=== PATIENT | female | born 1960 | race Caucasian/White ===

== ENCOUNTER 2019-06-15 09:07 | Outpatient (CLI) | payer OTHER, SELFPAY ==
--- NOTE | ~2019-06-15 | MM_ITS ---
EXAMINATION: MM screening gianni BI w shon HISTORY: Screening mammogram, family history of breast cancer in her mother and sister. TECHNIQUE: Craniocaudal and mediolateral oblique 3-D tomosynthesis images were obtained and synthetic 2-D images were generated. CAD analysis was submitted and interpreted. COMPARISON: 12/18/2017, 10/03/2016, 07/18/2015, 05/31/2014, 04/16/2013 BREAST PARENCHYMAL COMPOSITION: There are scattered areas of fibroglandular density. FINDINGS: There are changes of reduction mammoplasty. There is no evidence of suspicious mass, calcif ication, or architectural distortion to suggest malignancy in either breast. There has been no suspic ious interval change. IMPRESSION: 1. No mammographic evidence of malignancy. 2. Recommend routine screening mammography in one year. BI-RADS Category 2: Benign finding(s). Reviewed, dictated and finalized at location A. PACKER AND SEALER
== END 2019-06-15 09:08 | disposition home or self-care (01) ==
LOC: ANHIMG 09:13
PROVIDERS: PCP Family Medicine; Visit Provider Family Medicine
DX: Z12.31 Encounter for screening mammogram for malignant neoplasm of breast (principal)
CPT/HCPCS: 77063; 77067

== ENCOUNTER 2020-09-18 09:16 | Outpatient (CLI) | payer OTHER, SELFPAY ==
--- NOTE | ~2020-09-18 | MM_ITS ---
EXAMINATION: MM screening gianni BI w shon HISTORY: Screening mammogram TECHNIQUE: Craniocaudal and mediolateral oblique 3-D tomosynthesis images were obtained and synthetic 2-D images were generated. CAD analysis was submitted and interpreted. COMPARISON: , 12/18/2017, 10/03/2016 bilateral digital screening mammogram examinations BREAST PARENCHYMAL COMPOSITION: There are scattered areas of fibroglandular density. FINDINGS: History of bilateral breast reduction surgery. Stable minimal fibroglandular asymmetry. Occ asional bilateral benign calcifications. There is no evidence of suspicious mass, calcification, or a rchitectural distortion to suggest malignancy in either breast. There has been no suspicious interval change. IMPRESSION: 1. No mammographic evidence of malignancy. 2. Recommend routine screening mammography in one year. BI-RADS Category 2: Benign finding(s). Reviewed, dictated and finalized at location A.
== END 2020-09-18 09:17 | disposition home or self-care (01) ==
LOC: ANHIMG 09:17
PROVIDERS: PCP Family Medicine; Visit Provider Family Medicine
DX: Z12.31 Encounter for screening mammogram for malignant neoplasm of breast (principal)
CPT/HCPCS: 77063; 77067

== ENCOUNTER 2021-05-07 02:25 | Day surgery (SDC) | payer OTHER, SELFPAY ==
[2021-04-18 14:53] VITALS: BMI 37.3
--- NOTE | 2021-05-04 12:50 | PM.HPGS ---
History of Present Illness History of Present Illness Consent: Risks, benefits, and alternatives have been discussed and questions answered. Patient agrees to proceed with procedure. Chief complaint: neoplasm screening Narrative: Tosha Mcallister is a 60 year old female Referred for colon cancer screening. Her last colonoscopy was nearly 10 years ago. Review of Systems Review of Systems: All systems reviewed & are unremarkable except as noted in HPI and below PMFSH Past Medical History Medical History Female gynecomastia Hyperlipidemia RLS (restless legs syndrome) Surgical History Surgical History H/O reduction mammoplasty History of arthroplasty of left knee Family History Family History Father Hypertension Family history of elevated blood lipids Malignant neoplasm of prostate Mother Family history of malignant neoplasm of breast in first degree relative Grandparent Diabetes mellitus Social History Social History Social History: Smoking packs per day: 1 Smoking cigarettes per day: 20.0 Years smoked: 3 Smoking pack-years: 3.00 Smoking status: Former smoker Tobacco type: cigarettes Second hand tobacco smoke exposure: No Smoking end date: 04/26/86 Alcohol intake: current Alcohol use details: occasional, rare Substance use: current Substance use type: other Other substance usage details: CBD Gummies for sleep Last use: Pt also has THC Gummies to help her sleep Living arrangements: with family Additional living arrangements comments: Pt lives with her 2 children Gender identity (if verbalized by the patient): Female Sexual Orientation (if Verbalized by the Patient): Straight or Heterosexual Spiritual care concerns: No Meds Home Medications and Allergies Home Medications Medication Instructions Recorded Confirmed Type ascorbic acid (vitamin C) 1,000 mg 1 gm PO DAILY 04/08/19 04/18/21 History tablet cholecalciferol (vitamin D3) 250 250 mcg PO DAILY 05/23/20 04/18/21 History mcg (10,000 unit) capsule ropinirole 1 mg tablet 1 mg PO .qhs #90 tablet 08/22/20 04/18/21 Rx meloxicam 15 mg tablet 15 mg PO DAILY #30 tablet 02/19/21 04/18/21 Rx rosuvastatin 10 mg tablet 10 mg PO DAILY #90 tablet 03/28/21 04/18/21 Rx Allergies Allergy/AdvReac Type Severity Reaction Status Date / Time morphine Allergy Mild vomit Verified 05/07/21 07:42 codeine Allergy Unknown Nausea Verified 05/07/21 07:42 Exam Resp: Auscultation: clear to auscultation bilaterally Cardio: Rate: regular rate Rhythm: regular rhythm GI: GI Palp: Yes Soft to palpation and No Tenderness to palpation present (GI) Assessment and Plan Assessment and plan (1) Colon cancer screening: Code(s): Z12.11 - Encounter for screening for malignant neoplasm of colon Status: Acute Assessment and Plan: Colonoscopy with possible biopsy or polypectomy or cautery or injection of substances.
[2021-05-07 07:43] VITALS: BP 145/70; PULSE 83; RESP 20; TEMP 36.4; O2SAT 98
--- NOTE | 2021-05-07 07:50 | WPDANESEPPF ---
Anes - Initial Pre Proc Eval Procedure: Operation Date: 05/07/21 08:30 Proposed Procedures p Screening Colonoscopy - Ariel Levine MD Date/Time: 05/07/21 07:50 Surgeon: Ariel Levine MD Pre Op Diagnosis: neoplasm screening Patient Data Age: 60 Gender: F Height: 1.73 m Weight: 115.2 kg Last Vital Signs Temp 36.4 C 05/07/21 07:43 Pulse 83 05/07/21 07:43 Resp 20 05/07/21 07:43 BP 145/70 H 05/07/21 07:43 Pulse Ox 98 05/07/21 07:43 Allergies Allergy/AdvReac Type Severity Reaction Status Date / Time morphine Allergy Mild vomit Verified 05/07/21 07:42 codeine Allergy Unknown Nausea Verified 05/07/21 07:42 Home Medications Medication Instructions Recorded Confirmed Type ascorbic acid (vitamin C) 1,000 mg 1 gm PO DAILY 04/08/19 04/18/21 History tablet cholecalciferol (vitamin D3) 250 250 mcg PO DAILY 05/23/20 04/18/21 History mcg (10,000 unit) capsule ropinirole 1 mg tablet 1 mg PO .qhs #90 tablet 08/22/20 04/18/21 Rx meloxicam 15 mg tablet 15 mg PO DAILY #30 tablet 02/19/21 04/18/21 Rx rosuvastatin 10 mg tablet 10 mg PO DAILY #90 tablet 03/28/21 04/18/21 Rx Patient hx anesthesia problems: none Family hx anesthesia problems: none Results Review: All pre-operative results and documents have been reviewed as part of the pre-operative evaluation. [facility] Past Medical History Medical History Female gynecomastia Hyperlipidemia RLS (restless legs syndrome) Surgical History Surgical History H/O reduction mammoplasty History of arthroplasty of left knee Family History Family History Father Hypertension Family history of elevated blood lipids Malignant neoplasm of prostate Mother Family history of malignant neoplasm of breast in first degree relative Grandparent Diabetes mellitus Social History Social History (Updated 02/19/21 @ 11:12 by Vannesa Garcia Social History: Smoking packs per day: 1 Smoking cigarettes per day: 20.0 Years smoked: 3 Smoking pack-years: 3.00 Smoking status: Former smoker Tobacco type: cigarettes Second hand tobacco smoke exposure: No Smoking end date: 04/26/86 Alcohol intake: current Alcohol use details: occasional, rare Substance use: current Substance use type: other Other substance usage details: CBD Gummies for sleep Last use: Pt also has THC Gummies to help her sleep Living arrangements: with family Additional living arrangements comments: Pt lives with her 2 children Gender identity (if verbalized by the patient): Female Sexual Orientation (if Verbalized by the Patient): Straight or Heterosexual Spiritual care concerns: No Anes - Eval Final PreProcedure Day of Procedure 05/07/21 07:50 Patient weight: obese Heart: regular rate and rhythm Lungs: clear to auscultation and normal air movement Airway: Mallampati scale class II Neurological: alert and oriented Last oral intake: >/= 8 hours ASA classification: III Emergent: no Anesthetic plan: proceed Anesthesia type and monitoring: general GIVS and standard monitoring Results Review: All pre-operative results and documents have been reviewed as part of the pre-operative evaluation. Informed Consent: The patient's anesthetic plan and its attendant risks and benefits were discussed with the patient/family/POA. Questions were solicited and answers provided to the satisfaction of the patient/family/POA.
[2021-05-07] MEDS: LACTATED RINGERS 1,000 ML 150 ML IV CONT (07:52)
[2021-05-07 08:38] VITALS: BP 102/62; PULSE 74; RESP 20; O2SAT 95
[2021-05-07 08:48] VITALS: BP 108/61; PULSE 76; RESP 18; O2SAT 100
[2021-05-07 08:58] VITALS: BP 123/82; PULSE 74; RESP 18; O2SAT 100
== END 2021-05-07 09:14 | disposition home or self-care (01) ==
PROVIDERS: PCP Family Medicine; Visit Provider Internal Medicine Gastroenterology
PROC: 0DJD8ZZ Inspection of Lower Intestinal Tract, Via Natural or Artificial Opening Endoscopic (ICD-10-PCS; CPT 45378; principal; 2021-05-07 08:30)
DX: Z12.11 Encounter for screening for malignant neoplasm of colon (principal); K63.5 Polyp of colon; E78.5 Hyperlipidemia, unspecified; G25.81 Restless legs syndrome; Z87.891 Personal history of nicotine dependence; F12.90 Cannabis use, unspecified, uncomplicated
CPT/HCPCS: 45385; 88305; J2704; J7120

== ENCOUNTER 2022-05-17 09:32 | Outpatient (CLI) | payer OTHER, SELFPAY ==
--- NOTE | ~2022-05-17 | MM_ITS ---
EXAMINATION: MM screening gianni BI w shon HISTORY: Screening mammogram, family history of breast cancer in her sister. TECHNIQUE: Craniocaudal and mediolateral oblique 3-D tomosynthesis images were obtained and synthetic 2-D images were generated. CAD analysis was submitted and interpreted. COMPARISON: 09/18/2020, 06/15/2019, 12/18/2017 BREAST PARENCHYMAL COMPOSITION: There are scattered areas of fibroglandular density. FINDINGS: RIGHT BREAST: There is a 9 mm mass in the posterior third of the lower, slightly inner breast. LEFT BREAST: No suspicious mass, calcification, or architectural distortion are identified to suggest malignancy. There has been no suspicious interval change. IMPRESSION: 1. Right breast mass. 2. Additional mammographic views and possible breast ultrasound are recommended. BI-RADS Category 0: Incomplete: Needs additional imaging evaluation. Reviewed, dictated and finalized at location A. NCIAL SERVICES AUDITOR IMPRESSION: 1. Right breast mass. 2. Additional mammographic views and possible breast ultrasound are recommended . BI-RADS Category 0: Incomplete: Needs additional imaging evaluation.
== END 2022-05-17 09:33 | disposition home or self-care (01) ==
LOC: ANHIMG 09:34
PROVIDERS: PCP Family Medicine; Visit Provider Family Medicine
DX: Z12.31 Encounter for screening mammogram for malignant neoplasm of breast (principal); R92.8 Other abnormal and inconclusive findings on diagnostic imaging of breast
CPT/HCPCS: 77063; 77067

== ENCOUNTER 2022-06-05 12:46 | Outpatient (CLI) | payer OTHER, SELFPAY ==
--- NOTE | ~2022-06-05 | MMUS_ITS ---
EXAMINATION: MM diagnostic gianni RT w shon, US breast RT limited HISTORY: 11 year-old mass reported in posterior third is lower slightly inner right breast on 3 screening mammogram examination TECHNIQUE: Additional 3-D tomosynthesis images of right breast were performed and synthetic 2-D image s were generated. CAD analysis was submitted and interpreted. High resolution targeted right breast u ltrasound was performed. COMPARISON: Serial bilateral screening mammograms dating back to 12/18/2017 FINDINGS: MAMMOGRAPHIC FINDINGS: There is an approximately 6 mm mass in the posterior mid to lower inner right breast. ULTRASOUND: 4:00 4 cm from nipple: 3.7 x 8 x 6.6 mm parallel circumscribed sonolucency with through transmission and no internal vascularity, consistent with a simple cyst. No suspicious mass or shadowing is detected. IMPRESSION: 1. 8 mm simple cyst 2. Routine mammographic screening is recommended. BIRADS Category 2: Benign Reviewed, dictated and finalized at location A. 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 8 mm simple cyst 2. Routine mammographic screening is recommended. BIRADS Category 2: Benign
== END 2022-06-05 12:47 | disposition home or self-care (01) ==
LOC: ANHIMG 12:48
PROVIDERS: PCP Family Medicine; Visit Provider Nurse Practitioner Gerontology
DX: R92.8 Other abnormal and inconclusive findings on diagnostic imaging of breast (principal); N60.01 Solitary cyst of right breast
CPT/HCPCS: 76642; 77061; 77065; G0279

== ENCOUNTER 2023-06-28 18:22 | Emergency (ER) | payer OTHER, SELFPAY ==
--- NOTE | 2023-06-28 18:24 | ED.SKABFB ---
HPI - Skin/Abscess/Foreign Bdy General Chief complaint: Skin/Abscess/Foreign Body Stated complaint: rash Time Seen by Provider: 06/28/23 18:24 Source: patient Mode of arrival: ambulatory Limitations: no limitations History of Present Illness HPI narrative: Tosha is a 62-year-old female patient presenting to the clinic today with complaints of a rash to her left posterior axilla. She really states that she developed this rash after being in close contact with a friend who had shingles. She reports that the rash is itchy, raised, but not yet painful. First noticed a rash today. Related Data Home Medications Medication Instructions Recorded Confirmed cholecalciferol (vitamin D3) 250 250 mcg PO DAILY 05/23/20 06/02/23 mcg (10,000 unit) capsule omega-3 28.5 mg-dha 23.75 mg-epa tablet PO 06/02/23 06/02/23 4.75 mg-fish oil 113.5 mg chew tablet fexofenadine 60 mg tablet 60 mg PO Q12H 06/28/23 06/28/23 lutein 10 mg tablet 10 mg PO DAILY 06/28/23 06/28/23 vitamin A 2,400 mcg capsule 2,400 mcg PO DAILY 06/28/23 06/28/23 vitamin B complex 1 cap PO DAILY 06/28/23 06/28/23 Allergies Allergy/AdvReac Type Severity Reaction Status Date / Time morphine AdvReac Mild vomit Verified 06/28/23 18:35 codeine AdvReac Unknown Nausea Verified 06/28/23 18:35 Review of Systems Review of Systems: Pertinent positives per HPI. Patient denies any fever, chills, headache, visual changes, dizziness, cough, shortness of breath, chest pain, palpitations, nausea, vomiting, diarrhea, constipation, abdominal pain, or any urinary issues. [facility] Past Medical History Medical History Abnormal mammogram Breast cancer screening Breast screening Colon cancer screening Encounter for general adult medical examination without abnormal findings Female gynecomastia Hyperlipidemia RLS (restless legs syndrome) Smoker Weight gain Surgical History Surgical History H/O reduction mammoplasty History of arthroplasty of left knee Family History Family History Father Hypertension Family history of elevated blood lipids Malignant neoplasm of prostate Mother Family history of malignant neoplasm of breast in first degree relative Grandparent Diabetes mellitus Social History Social History Social History: Smoking packs per day: 1 Smoking cigarettes per day: 20.0 Years smoked: 3 Smoking pack-years: 3.00 Smoking status: Former smoker Tobacco type: cigarettes Second hand tobacco smoke exposure: No Smoking end date: 04/26/86 Alcohol intake: current Alcohol use details: occasional, rare Substance use: current Substance use type: other Other substance usage details: CBD Gummies for sleep Last use: Pt also has THC Gummies to help her sleep Living arrangements: with family Additional living arrangements comments: Pt lives with her 2 children Occupation/Education: occupation Gender identity (if verbalized by the patient): Female Sexual Orientation (if Verbalized by the Patient): Straight or Heterosexual Spiritual care concerns: No Comments At the time of my signature, I reviewed and agree with the nursing past medical, surgical, social, and family history. There is no relevant family history pertinent to the patient complaint. Exam Narrative: General: Well-developed, well nourished, in no apparent distress Head: Normocephalic, atraumatic. Cardio: Regular rate and rhythm, s1 and s2 normal, no murmur appreciated. Resp: Clear to auscultation bilaterally, no rhonchi, rales, wheezing or rubs. Integumentary: [place], warm, and dry, red raised rash with erythemic base with mild tenderness to palpation with fascicular lesions to the left posterior axilla/back Course Co
[2023-06-28 18:33] VITALS: BP 134/55; PULSE 97; RESP 18; TEMP 36.4; O2SAT 97
[2023-06-28 18:36] VITALS: BP 134/55; PULSE 97; RESP 18; TEMP 36.4; O2SAT 97
== END 2023-06-28 18:53 | disposition home or self-care (01) ==
PROVIDERS: Emergency Provider Nurse Practitioner Family; PCP Family Medicine
DX: B02.9 Zoster without complications (principal); Z87.891 Personal history of nicotine dependence; E78.5 Hyperlipidemia, unspecified; G25.81 Restless legs syndrome; Z96.652 Presence of left artificial knee joint
CPT/HCPCS: 99213; G0463

== ENCOUNTER 2023-08-25 12:21 | Emergency (ER) | payer OTHER, SELFPAY ==
--- NOTE | 2023-08-25 12:26 | ED.URI ---
HPI - URI/Sore Throat General Chief Complaint: Upper Respiratory Infection Stated Complaint: Cough Time Seen by Provider: 08/25/23 12:55 Source: patient and RN notes reviewed Mode of arrival: ambulatory Limitations: no limitations History of Present Illness HPI Narrative: 63-year-old female with cough during asthma presents with concern for exacerbation. Reports after camping over the weekend she has had persistent cough. She denies fever, body aches, chills, sweats. She reports she has been using her rescue inhaler. MD elicited complaint: cough Related Data Home Medications Medication Instructions Recorded Confirmed cholecalciferol (vitamin D3) 250 250 mcg PO DAILY 05/23/20 08/25/23 mcg (10,000 unit) capsule omega-3 28.5 mg-dha 23.75 mg-epa 1 tablet PO DAILY 06/02/23 08/25/23 4.75 mg-fish oil 113.5 mg chew tablet fexofenadine 60 mg tablet 60 mg PO Q12H 06/28/23 08/25/23 lutein 10 mg tablet 10 mg PO DAILY 06/28/23 08/25/23 vitamin A 2,400 mcg capsule 2,400 mcg PO DAILY 06/28/23 08/25/23 vitamin B complex 1 cap PO DAILY 06/28/23 08/25/23 ropinirole 0.5 mg tablet 1 mg PO HS 08/25/23 08/25/23 Allergies Allergy/AdvReac Type Severity Reaction Status Date / Time codeine AdvReac Intermediate Nausea and Verified 08/25/23 12:52 Vomiting morphine AdvReac Intermediate Nausea and Verified 08/25/23 12:52 Vomiting Review of Systems Review of Systems: CONSTITUTIONAL: Denies malaise, chills, sweats, or fever. EYES: Denies visual changes, redness, or discharge. ENT: Denies rhinorrhea, congestion, sinus pain, otalgia and sore throat. CARDIOVASCULAR: Denies chest pain, palpitations, or edema. RESPIRATORY: Reports cough, dyspnea. GASTROINTESTINAL: Denies abdominal pain, nausea, vomiting, diarrhea SKIN: Denies rash or itching. MUSCULOSKELETAL: Denies myalgia. NEUROLOGIC: Denies headache. All systems reviewed & are unremarkable except as noted in HPI and below PMFSH Past Medical History Medical History Abnormal mammogram Breast cancer screening Breast screening Colon cancer screening Encounter for general adult medical examination without abnormal findings Female gynecomastia Hyperlipidemia RLS (restless legs syndrome) Smoker Weight gain Surgical History Surgical History H/O reduction mammoplasty History of arthroplasty of left knee Family History Family History Father Hypertension Family history of elevated blood lipids Malignant neoplasm of prostate Mother Family history of malignant neoplasm of breast in first degree relative Grandparent Diabetes mellitus Social History Social History (Updated 07/01/23 @ 15:40 by Vannesa Pereira) Social History: Smoking packs per day: 1 Smoking cigarettes per day: 20.0 Years smoked: 3 Smoking pack-years: 3.00 Smoking status: Former smoker Tobacco type: cigarettes Second hand tobacco smoke exposure: No Smoking end date: 04/26/86 Alcohol intake: current Alcohol use details: occasional, rare Substance use: current Substance use type: other Other substance usage details: CBD Gummies for sleep Last use: Pt also has THC Gummies to help her sleep Do You Feel Safe in your Home?: Yes Lack of Transportation: No Lack of Food: Never True Current Housing: I Have Housing Concerned About Future Housing: No Difficulty Paying Gas/Electric Bills: No Difficulty Paying for Meds: No Currently Unemployed: No Education: Don't Know Difficulty w/ Childcare or Family Care: No Living arrangements: with family Additional living arrangements comments: Pt lives with her 2 children Occupation/Education: occupation Gender identity (if verbalized by the patient): Female Sexual Orientation (if Verbalized by the Patient): Straight or Heterosexual Spiritual car
[2023-08-25 12:40] VITALS: BP 141/113; PULSE 96; RESP 18; TEMP 36.4; O2SAT 98
== END 2023-08-25 13:07 | disposition home or self-care (01) ==
PROVIDERS: Emergency Provider Nurse Practitioner; PCP Family Medicine
DX: J45.909 Unspecified asthma, uncomplicated (principal); Z87.891 Personal history of nicotine dependence; E78.5 Hyperlipidemia, unspecified; G25.81 Restless legs syndrome
CPT/HCPCS: 99213; G0463

== ENCOUNTER 2023-08-31 15:29 | Emergency (ER) | payer OTHER, SELFPAY ==
--- NOTE | ~2023-08-31 | XR_ITS ---
EXAMINATION: XR chest 2V DATE: 08/31/2023 15:57 INDICATION: One week of cough TECHNIQUE: PA and lateral views of the chest were obtained. COMPARISON: None FINDINGS: Thin linear bands of discoid atelectasis projecting over the right hilum and at the left costophrenic angle. No other airspace opacities, pulmonary edema, pleural effusion or pneumothorax. The cardiomed iastinal silhouette is normal. Moderate thoracic spondylosis. IMPRESSION: 1. Scattered mild discoid atelectasis. No other acute cardiopulmonary disease. Reviewed, dictated and finalized at location A.
[2023-08-31 15:35] VITALS: BP 137/86; PULSE 90; RESP 16; TEMP 36.4; O2SAT 97
--- NOTE | 2023-08-31 15:46 | ED.URI ---
HPI - URI/Sore Throat General Chief Complaint: Upper Respiratory Infection Stated Complaint: Cough Time Seen by Provider: 08/31/23 15:46 Source: patient Mode of arrival: ambulatory Limitations: no limitations History of Present Illness HPI Narrative: 63-year-old female presents with complaint of cough, nasal congestion, sinus pressure for the past week. Was seen here 6 days ago and given prednisone. Patient reports that she has cough. Asthma. Use a Symbicort inhaler. Cannot use albuterol inhaler due to making heart race. Denies chest pain and shortness of breath. Patient concerned that she has bacterial sinusitis. Leaving for [place] tomorrow and wants antibiotic prior to going out of [facility]. All systems reviewed and negative except as noted above. Related Data Home Medications Medication Instructions Recorded Confirmed cholecalciferol (vitamin D3) 250 250 mcg PO DAILY 05/23/20 08/31/23 mcg (10,000 unit) capsule omega-3 28.5 mg-dha 23.75 mg-epa 1 tablet PO DAILY 06/02/23 08/31/23 4.75 mg-fish oil 113.5 mg chew tablet fexofenadine 60 mg tablet 60 mg PO Q12H 06/28/23 08/31/23 lutein 10 mg tablet 10 mg PO DAILY 06/28/23 08/31/23 vitamin A 2,400 mcg capsule 2,400 mcg PO DAILY 06/28/23 08/31/23 vitamin B complex 1 cap PO DAILY 06/28/23 08/31/23 ropinirole 0.5 mg tablet 1 mg PO HS 08/25/23 08/31/23 Allergies Allergy/AdvReac Type Severity Reaction Status Date / Time codeine AdvReac Intermediate Nausea and Verified 08/31/23 15:43 Vomiting morphine AdvReac Intermediate Nausea and Verified 08/31/23 15:43 Vomiting Review of Systems Review of Systems: CONSTITUTIONAL: Denies fever, chills, or sweats. EYES: Denies visual changes, redness, or discharge. ENT: Reports rhinorrhea, congestion, sinus pressure. Denies sore throat, or otalgia. CARDIOVASCULAR: Denies chest pain, palpitations, or edema. RESPIRATORY: reports cough. Denies dyspnea. GASTROINTESTINAL: Denies abdominal pain, nausea, vomiting, or diarrhea. GENITOURINARY: Denies dysuria or hematuria. SKIN: Denies rash or itching. MUSCULOSKELETAL: Denies back pain, joint pain, or myalgia. NEUROLOGIC: Denies headache, numbness, or weakness. PSYCHIATRIC: Denies anxiety or depression. All other systems reviewed are negative, except as documented in HPI. [facility] Past Medical History Medical History Abnormal mammogram Breast cancer screening Breast screening Colon cancer screening Encounter for general adult medical examination without abnormal findings Female gynecomastia Hyperlipidemia RLS (restless legs syndrome) Smoker Weight gain Surgical History Surgical History H/O reduction mammoplasty History of arthroplasty of left knee Family History Family History Father Hypertension Family history of elevated blood lipids Malignant neoplasm of prostate Mother Family history of malignant neoplasm of breast in first degree relative Grandparent Diabetes mellitus Social History Social History (Updated 07/01/23 @ 15:40 by Vannesa Pereira) Social History: Smoking packs per day: 1 Smoking cigarettes per day: 20.0 Years smoked: 3 Smoking pack-years: 3.00 Smoking status: Former smoker Tobacco type: cigarettes Second hand tobacco smoke exposure: No Smoking end date: 04/26/86 Alcohol intake: current Alcohol use details: occasional, rare Substance use: current Substance use type: other Other substance usage details: CBD Gummies for sleep Last use: Pt also has THC Gummies to help her sleep Do You Feel Safe in your Home?: Yes Lack of Transportation: No Lack of Food: Never True Current Housing: I Have Housing Concerned About Future Housing: No Difficulty Paying Gas/Electric Bills: No Difficulty Paying for Meds: No Currently Unemployed:
== END 2023-08-31 16:20 | disposition home or self-care (01) ==
PROVIDERS: Emergency Provider Nurse Practitioner Family; PCP Family Medicine
DX: J01.90 Acute sinusitis, unspecified (principal); Z87.891 Personal history of nicotine dependence; E78.5 Hyperlipidemia, unspecified; G25.81 Restless legs syndrome; Z96.652 Presence of left artificial knee joint
CPT/HCPCS: 71046; 99213; G0463

== ENCOUNTER 2023-10-06 09:49 | Outpatient (CLI) | payer OTHER, SELFPAY ==
--- NOTE | ~2023-10-06 | MM_ITS ---
EXAMINATION: MM screening gianni BI w shon HISTORY: Screening TECHNIQUE: Craniocaudal and mediolateral oblique 3-D tomosynthesis images were obtained and synthetic 2-D images were generated. CAD analysis was submitted and interpreted. COMPARISON: Comparison to multiple prior studies sequentially, with oldest reviewed study dated 11/2016. BREAST PARENCHYMAL COMPOSITION: Not dense: There are scattered areas of fibroglandular density. FINDINGS: There is no evidence of suspicious mass, calcification, or architectural distortion to sugg est malignancy in either breast. There has been no suspicious interval change. IMPRESSION: 1. No mammographic evidence of malignancy. 2. Recommend routine screening mammography in one year. BI-RADS Category 1: Negative Reviewed, dictated and finalized at location B.
== END 2023-10-06 09:50 ==
LOC: MICIMG 09:49
PROVIDERS: PCP Family Medicine; Visit Provider Family Medicine
DX: Z12.31 Encounter for screening mammogram for malignant neoplasm of breast (principal)
CPT/HCPCS: 77063; 77067

== ENCOUNTER 2024-05-07 11:24 | Emergency (ER) | payer OTHER, SELFPAY ==
[2024-05-07 11:49] VITALS: BP 124/60; PULSE 61; RESP 16; TEMP 36.6; O2SAT 97
--- NOTE | 2024-05-07 11:58 | ED_ITS ---
HPI - URI/Sore Throat General Chief Complaint: Upper Respiratory Infection Stated Complaint: cold symptoms Time Seen by Provider: 05/07/24 11:55 Source: patient Mode of arrival: ambulatory Limitations: no limitations History of Present Illness HPI Narrative: Fernando is a 63-year-old female patient presenting to the clinic today with complaints of productive cough with yellow phlegm, nasal congestion, and sinus pressure. She reports symptoms have been going on for 2 weeks. Does have history of cough variant asthma. Denies any chest pain or shortness of breath. Has been using her albuterol inhaler. MD elicited complaint: cough, nasal congestion and sinus pain Related Data Home Medications ?Medication ?Instructions ?Recorded ?Confirmed ?Last Taken ?Type cholecalciferol (vitamin D3) 250 250 mcg PO DAILY 05/23/20 08/31/23 Unknown History mcg (10,000 unit) capsule omega-3 28.5 mg-dha 23.75 mg-epa 1 tablet PO DAILY 06/02/23 08/31/23 Unknown History 4.75 mg-fish oil 113.5 mg chew tablet fexofenadine 60 mg tablet 60 mg PO Q12H 06/28/23 08/31/23 Unknown History lutein 10 mg tablet 10 mg PO DAILY 06/28/23 08/31/23 Unknown History vitamin A 2,400 mcg capsule 2,400 mcg PO DAILY 06/28/23 08/31/23 Unknown History vitamin B complex 1 cap PO DAILY 06/28/23 08/31/23 Unknown History Allergies Allergy/AdvReac Type Severity Reaction Status Date / Time codeine AdvReac Intermediate Nausea and Verified 08/31/23 15:43 Vomiting morphine AdvReac Intermediate Nausea and Verified 08/31/23 15:43 Vomiting Review of Systems Review of Systems: Pertinent positives per HPI. Patient denies any fever, chills, rash, headache, visual changes, dizziness, shortness of breath, chest pain, palpitations, nausea, vomiting, diarrhea, constipation, abdominal pain, or any urinary issues. [facility] Past Medical History Medical History Abnormal mammogram Breast cancer screening Breast screening Colon cancer screening Encounter for general adult medical examination without abnormal findings Female gynecomastia Hyperlipidemia RLS (restless legs syndrome) Smoker Weight gain Surgical History Surgical History History of arthroplasty of left knee H/O reduction mammoplasty Family History Family History Father Hypertension Family history of elevated blood lipids Malignant neoplasm of prostate Mother Family history of malignant neoplasm of breast in first degree relative Grandparent Diabetes mellitus Social History Social History Social History: Smoking packs per day: 1 Smoking cigarettes per day: 20.0 Years smoked: 3 Smoking pack-years: 3.00 Smoking status: Former smoker Tobacco type: cigarettes Second hand tobacco smoke exposure: No Smoking end date: 04/26/86 Alcohol intake: current Alcohol use details: occasional, rare Substance use: current Substance use type: other Other substance usage details: CBD Gummies for sleep Last use: Pt also has THC Gummies to help her sleep Do You Feel Safe in your Home?: Yes Lack of Transportation: No Lack of Food: Never True Current Housing: I Have Housing Concerned About Future Housing: No Difficulty Paying Gas/Electric Bills: No Difficulty Paying for Meds: No Currently Unemployed: No Education: Don't Know Difficulty w/ Childcare or Family Care: No Living arrangements: with family Additional living arrangements comments: Pt lives with her 2 children Occupation/Education: occupation Gender identity (if verbalized by the patient): Female Sexual Orientation (if Verbalized by the Patient): Straight or Heterosexual Spiritual care concerns: No Comments At the time of my signature, I reviewed and agree with the nursing past medical, surgical, social, and family history. There is no relevant family history pertinent to the patient complaint. Exam Narrative: General: Well-developed, obese, in no apparent distress Head: Normocephalic, atraumatic Eyes: Pupils equally round and reactive to light bilaterally, EOM intact, sclera and conjunctive clear, no discharge, lids normal Ears: TMs intact and congested, ear canals clear, no drainage, grossly hearing normal. Nose: Nares patent, yellow nasal discharge, moderate inflammation, maxillary sinus tenderness. Mouth: Oral pharynx red without lesions or masses, good dentition, MMM. Postnasal drip Neck: Supple, trachea midline, no enlargement of anterior or posterior cervical nodes, no thyroid masses or goiter palpable. Cardio: Regular rate and rhythm, s1 and s2 normal, no murmur appreciated. Resp: Lung sounds diminished in the bases otherwise clear, no rhonchi, rales, wheezing or rubs Course Course Emergency Course: Portions of this record may have been created with voice recognition software. Level of Care: Express Care Visit Vital Signs Vital signs: Vital Signs Temperature 36.6 C 05/07/24 11:49 Pulse Rate 61 05/07/24 11:49 Respiratory Rate 16 05/07/24 11:49 Blood Pressure 124/60 05/07/24 11:49 Pulse Oximetry 97 05/07/24 11:49 Temperature 36.6 C 05/07/24 11:49 Pulse Rate 61 05/07/24 11:49 Respiratory Rate 16 05/07/24 11:49 Blood Pressure 124/60 05/07/24 11:49 Pulse Oximetry 97 05/07/24 11:49 Vital signs reviewed MDM - URI/Sore Throat MDM Narrative Medical decision making narrative: At the time of visit patient is resting comfortably on the exam table. Patient appears to be nontoxic. Plan: I suspect patient has bronchitis/sinusitis. Prescription for prednisone, Tessalon Perles, doxycycline, and albuterol inhaler was sent to the pharmacy. Supportive measures were discussed with the patient and they voiced understanding discharge instructions and agrees to treatment plan. Return precautions reviewed Differential Diagnosis Differential diagnosis: Likely upper respiratory infection, otitis media, sinusitis, viral infection, bronchitis, influenza, pharyngitis and other (COVID) Discharge Plan Discharge Clinical Impression: Bronchitis Sinusitis Qualifiers: Sinusitis location: maxillary Chronicity: acute Recurrence: non-recurrent Qualified Code(s): J01.00 - Acute maxillary sinusitis, unspecified Patient Disposition: Home, Self-Care Condition: Stable Instructions: Antibiotic Form, Sinusitis (ED), Acute Bronchitis (ED) Additional Instructions: Take prescription medications only as prescribed-doxycycline, prednisone, and Tessalon Perles Increase fluids and stay well hydrated Tylenol/motrin for pain/fever Flonase and OTC antihistamines as directed Vicks vapor rub to open sinuses Sinus rinses for congestion Cepacol spray, cough drops, throat lozenges, warm tea with honey/lemon, gargle salt water to soothe throat BRAT diet for diarrhea Clear liquids x 24 hours then advance as tolerated for nausea/vomiting Go to the ED if you develop a worsening in your condition- high fever not controlled by Tylenol or Motrin, dehydration, weakness, lethargy, shortness of breath, or chest pain. Follow up with your PCP in 3-5 days if symptoms persist. Patient Language: Polish Prescriptions: New benzonatate 200 mg capsule 200 mg PO TID 7 Days Qty: 21 0RF prednisone 20 mg tablet 40 mg PO DAILY 5 Days Qty: 10 0RF albuterol sulfate 90 mcg/actuation HFA aerosol inhaler 2 puff inhalation Q4-6H PRN (Reason: shortness of breath or wheezing) 30 Days Qty: 8.5 0RF doxycycline monohydrate 100 mg capsule 100 mg PO BID 10 Days Qty: 20 0RF No Action fexofenadine [Yulia] 60 mg Tablet 60 mg PO Q12H vitamin A 2,400 mcg Capsule 2,400 mcg PO DAILY vitamin B complex Capsule 1 cap PO DAILY lutein 10 mg Tablet 10 mg PO DAILY Rx Instructions: give with meal/snack doxycycline hyclate 100 mg capsule 100 mg PO BID 7 Days Qty: 14 0RF benzonatate 200 mg capsule 200 mg PO TID PRN (Reason: cough) Qty: 20 0RF meloxicam 15 mg tablet 15 mg PO DAILY Qty: 30 3RF cholecalciferol (vitamin D3) 250 mcg (10,000 unit) capsule 250 mcg PO DAILY omega 4-shy-kiq-fish oil 28.5 mg(23.75- 4.75mg)-113.5mg tablet,chewable 1 tablet PO DAILY bupropion HCl 150 mg tablet extended release 24 hr See Rx Instructions .ROUTE .COMPLEX Qty: 90 1RF Dose Instruction: TAKE 1 TABLET BY MOUTH EVERY MORNING Rx Instructions: TAKE 1 TABLET BY MOUTH EVERY MORNING rosuvastatin 10 mg tablet See Rx Instructions .ROUTE .COMPLEX Qty: 90 1RF Dose Instruction: TAKE 1 TABLET BY MOUTH DAILY Rx Instructions: TAKE 1 TABLET BY MOUTH DAILY ropinirole 0.5 mg tablet 1 mg PO HS Qty: 180 0RF Follow-up/Referrals: Lori,Paloma Reza MD [Primary Care Provider] - Time of Disposition: 12:01 Quality NIHSS Nursing Documentation ED NIHSS nursing documentation: reviewed/agree
== END 2024-05-07 12:07 | disposition home or self-care (01) ==
PROVIDERS: Emergency Provider Nurse Practitioner Family; PCP Family Medicine
DX: J40 Bronchitis, not specified as acute or chronic (principal); J01.00 Acute maxillary sinusitis, unspecified; E78.5 Hyperlipidemia, unspecified; Z87.891 Personal history of nicotine dependence
CPT/HCPCS: 99213; G0463

== ENCOUNTER 2024-10-07 10:36 | Outpatient (CLI) | payer OTHER, SELFPAY ==
--- NOTE | ~2024-10-07 | MM_ITS ---
EXAMINATION: MM screening gianni BI w shon HISTORY: Screening TECHNIQUE: Craniocaudal and mediolateral oblique 3-D tomosynthesis images were obtained and synthetic 2-D images were generated. CAD analysis was submitted and interpreted. COMPARISON: Comparison to multiple prior studies sequentially, with oldest reviewed study dated 12/18. BREAST PARENCHYMAL COMPOSITION: Not dense: There are scattered areas of fibroglandular density. FINDINGS: There is no evidence of suspicious mass, calcification, or architectural distortion to sugg est malignancy in either breast. There has been no suspicious interval change. IMPRESSION: 1. No mammographic evidence of malignancy. 2. Recommend routine screening mammography in one year. BI-RADS Category 1: Negative Reviewed, dictated and finalized at location B.
== END 2024-10-07 10:37 | disposition home or self-care (01) ==
LOC: MICIMG 10:37
PROVIDERS: PCP Family Medicine; Visit Provider Physician Assistant
DX: Z12.31 Encounter for screening mammogram for malignant neoplasm of breast (principal)
CPT/HCPCS: 77063; 77067